=== PATIENT | female | born 1950 | race Caucasian/White ===

== ENCOUNTER 2017-11-01 09:09 | Emergency (ER) | payer BC ==
[~2017-11-01] VITALS: Ht 160 cm; Wt 92.4 kg
[2017-11-01 09:12] VITALS: BP 137/87
[2017-11-01 09:54] LABS: RAPID INFLUENZA A Negative (Negative); RAPID INFLUENZA B Negative (Negative)
== END 2017-11-01 10:33 | disposition home or self-care (01) ==
LOC: ED 09:40
DX: J09.X2 Influenza due to identified novel influenza A virus with other respiratory manifestations (principal); I10 Essential (primary) hypertension
CPT/HCPCS: 71046; 87400; 99285